=== PATIENT | male | born 1975 | race Caucasian/White ===

== ENCOUNTER 2021-06-06 04:59 | Emergency (ER) | payer OTHER ==
[~2021-06-06] VITALS: Ht 177.8 cm; Wt 93.0 kg
[~2021-06-06 04:59] MED LIST: ALPR.25 PO; AMIT10 PO; ATOR10 PO; BUPR100; CYCL10 PO; FLUO10 PO; HYDACE5 PO; HYDACE5325; KETO10 PO; NAPR375; OLAN5 PO; OMEP20ER PO; PREG25 PO; Prozac40 MG PO; RXCYCL10 PO; TRAZ50; ZOLP5 PO; [UNRECOGNIZED DRUG - OTHER]
[2021-06-06 05:51] LABS: BASOPHILS ABSOLUTE AUTO 0.06 K/mm3 (0.00-0.23); BASOPHILS PERCENT AUTO 1 % (0-2); EOSINOPHILS ABSOLUTE AUTO 0.37 K/mm3 (0.00-0.68); EOSINOPHILS PERCENT AUTO 3 % (0-6); Hematocrit 45.1 % (37.0-53.0); Hemoglobin 15.6 g/dL (13.5-17.5); IMMATURE GRAN ABSOLUTE AUTO 0.05 K/mm3 (0.00-0.10); IMMATURE GRAN PERCENT AUTO 1 % (0-1); LYMPHOCYTES ABSOLUTE AUTO 1.61 K/mm3 (0.84-5.20); LYMPHOCYTES PERCENT AUTO 15 % (21-46); MONOCYTES ABSOLUTE AUTO 0.55 K/mm3 (0.16-1.47); MONOCYTES PERCENT AUTO 5 % (4-13); Mean Corpuscular HGB Conc 34.6 g/dL (31.5-36.5); Mean Corpuscular Volume 90 fL (80-100); Mean Platelet Volume 9.8 fL (9.1-12.4); NEUTROPHILS ABSOLUTE AUTO 8.32 K/mm3 (1.96-9.15); NEUTROPHILS PERCENT AUTO 76 % (41-73); Platelet Count 314 K/mm3 (150-400); RDW Coefficient Variation 11.8 % (11.7-14.2); RDW Standard Deviation 38.1 fL (35.1-46.3); Red Blood Cell Count 5.04 M/mm3 (4.30-5.90); White Blood Cell Count 10.96 K/mm3 (4.00-11.30)
[2021-06-06 06:13] LABS: Alanine Aminotransfer (ALT/SGP 54 U/L (12-78); Albumin/Globulin Ratio 1.1 (0.8-1.8); Alk Phos 66 U/L (50-136); Anion Gap 8 mmol/L (6-16); Aspartate Aminotrans (AST/SGOT 22 U/L (12-37); Bilirubin, Direct 0.2 mg/dL (0.0-0.3); Bilirubin, Total 0.6 mg/dL (0.1-1.0); Blood Urea Nitrogen 18 mg/dL (8-24); Bun/Creatinine Ratio 14.1 (12.0-20.0); CO2, Blood 26 mmol/L (21-32); Calcium, Blood 9.1 mg/dL (8.5-10.1); Chloride, Blood 106 mmol/L (98-108); Creatinine, Blood 1.28 mg/dL (0.60-1.20); Globulin, Blood 3.6 g/dL (2.2-4.0); Glomerular Filtration Rate >60 (60-); Glucose, Blood 122 mg/dL (70-99); Sodium, Blood 140 mmol/L (136-145); Total Protein, Blood 7.6 g/dL (6.4-8.2)
[2021-06-06 08:27] LABS: Source, Urine Clean Catch
[2021-06-06 08:33] LABS: Appearance, Urine Clear (Clear); Bilirubin, Urine Neg (Neg); Blood, Urine Neg (Neg); Color, Urine Yellow (P-Yellow); Glucose Qualitative, Urine Neg (Neg); Ketones, Urine 2+ (Neg); Leukocyte Esterase, Urine Neg (Neg); Nitrite, Urine Neg (Neg); Protein, Urine Neg (Neg); Urobilinogen, Urine NORM (Normal)
== END 2021-06-06 10:34 | disposition home or self-care (01) ==
LOC: ER 04:59
PROVIDERS: Student in an Organized Health Care Education/Training Program
DX: R11.2 Nausea with vomiting, unspecified (principal); R10.12 Left upper quadrant pain
CPT/HCPCS: 36415; 74177; 76705; 80053; 81003; 82248; 83690; 85025; 96374; 96375; 99284-25; A9270; J1170; J1885; J2270; J2405; J7030; Q9967

== ENCOUNTER 2021-07-03 21:36 | Observation (INO) | payer OTHER ==
[~2021-07-03] VITALS: Ht 177.8 cm; Wt 99.4 kg
[2021-07-03 21:57] LABS: BASOPHILS ABSOLUTE AUTO 0.06 K/mm3 (0.00-0.23); BASOPHILS PERCENT AUTO 1 % (0-2); EOSINOPHILS PERCENT AUTO 6 % (0-6); Hematocrit 42.7 % (37.0-53.0); Hemoglobin 14.9 g/dL (13.5-17.5); IMMATURE GRAN ABSOLUTE AUTO 0.02 K/mm3 (0.00-0.10); IMMATURE GRAN PERCENT AUTO 0 % (0-1); LYMPHOCYTES ABSOLUTE AUTO 3.21 K/mm3 (0.84-5.20); LYMPHOCYTES PERCENT AUTO 39 % (21-46); MONOCYTES ABSOLUTE AUTO 0.77 K/mm3 (0.16-1.47); MONOCYTES PERCENT AUTO 9 % (4-13); Mean Corpuscular HGB Conc 34.9 g/dL (31.5-36.5); Mean Corpuscular Volume 89 fL (80-100); Mean Platelet Volume 9.4 fL (9.1-12.4); NEUTROPHILS ABSOLUTE AUTO 3.69 K/mm3 (1.96-9.15); NEUTROPHILS PERCENT AUTO 45 % (41-73); Platelet Count 342 K/mm3 (150-400); RDW Coefficient Variation 11.8 % (11.7-14.2); Red Blood Cell Count 4.81 M/mm3 (4.30-5.90); White Blood Cell Count 8.25 K/mm3 (4.00-11.30)
[2021-07-03 22:16] LABS: Albumin, Blood 3.9 g/dL (3.4-5.0); Albumin/Globulin Ratio 1.1 (0.8-1.8); Bilirubin, Total 0.6 mg/dL (0.1-1.0); Bun/Creatinine Ratio 10.9 (12.0-20.0); Calcium, Blood 9.1 mg/dL (8.5-10.1); Creatinine, Blood 1.19 mg/dL (0.60-1.20); Globulin, Blood 3.4 g/dL (2.2-4.0); Potassium, Blood 3.6 mmol/L (3.5-5.5); Total Protein, Blood 7.3 g/dL (6.4-8.2)
--- NOTE | 2021-07-04 05:10 | NUR ---
MECHANICS SUPERVISOR SUMMARY PT A&O X4 AND COOPERATIVE. VSS. PT ARRIVED ON FLOOR AT ABOUT 0139. HE COMPAINED OF 4/10 ABD PN THAT WAS RELIEVED WITH FENTANYL. PT DENIES N/V. NO OTHER ACUTE CHANGES THIS SHIFT.
--- NOTE | 2021-07-04 15:59 | NUR ---
PT TO PRE OP.
--- NOTE | 2021-07-04 17:19 | NUR ---
PT TAKEN TO PACU TO WAIT FOR SURGERY. REPORT TO MARY MEYERS TO ASSUME CARE OF PATIENT. PT VOIDED PRIOR TO GOING TO BATHROOM
--- NOTE | 2021-07-05 05:05 | NUR ---
PT A&O X4 AND COOPERATIVE. VSS. PT RETURNED FROM SURGERY AROUND 2019. FAMILY WAS WAITING AT BEDSIDE. INCISION SITES C/D/I. PT COMPLAINED OF 4/10 ABD PN UPON HIS RETURN TO THE FLOOR. HE WAS MEDICATED WITH NORCO AND PN REDUCE TO 3/10. PATIENT HAS BEEN ABLE TO AMBULATE TO THE BATHROOM INDEPENDENTLY AND URINATE. HE HAS TOLERATED EATING CRAKERS AND JELLO. NO OTHER ACUTE CHANGES THIS SHIFT.
[2021-07-05] MEDS ORDERED: HYDR1TAB94 PO (10:11)
--- NOTE | 2021-07-05 10:42 | NUR ---
DISCHARGE PT DISCHARGED HOME AT APROX 1042. PT GIVEN WRITTEN AND VERBAL DC INSTRUCTIONS AND VERBALIZED UNDERSTANDING. IV REMOVED. WRITTEN RX FOR PAIN MEDICATION GIVEN TO PT, COPY ON CHART. DECLINED WC TO CAR, AMBULATED INDEPENDENTLY
== END 2021-07-05 10:46 | disposition home or self-care (01) ==
LOC: ER 21:36 → SURS 21:37
PROVIDERS: Physician Assistant; ADMIT Surgery
PROC: BF12YZZ Fluoroscopy of Gallbladder using Other Contrast (ICD-10-PCS; principal; 2021-07-04 15:30)
PROC: 0FT44ZZ Resection of Gallbladder, Percutaneous Endoscopic Approach (ICD-10-PCS; principal; 2021-07-04 15:30)
DX: K80.12 Calculus of gallbladder with acute and chronic cholecystitis without obstruction (principal); F43.10 Post-traumatic stress disorder, unspecified; E78.5 Hyperlipidemia, unspecified; M79.7 Fibromyalgia; X58.XXXA Exposure to other specified factors, initial encounter; Z88.8 Allergy status to other drugs, medicaments and biological substances
CPT/HCPCS: 36415; 74300; 76705; 80053; 83690; 85025; 94760; 96374; 96375; 96376; 99285-25; A9270; C1729; G0378; J0690; J1100; J1170; J1885; J2270; J2405; J2704; J2710; J3010; J7120

== ENCOUNTER 2021-10-06 06:00 | Day surgery (SDC) | payer OTHER ==
[~2021-10-06] VITALS: Ht 177.8 cm; Wt 95.0 kg
[~2021-10-06 06:00] MED LIST changes: +HYDR1TAB94 PO
--- NOTE | 2021-10-06 11:31 | NUR ---
PT DRESSED, IV DC'D INTACT, TR BAND REMOVED, DRESSING AND SPLINT TO R WRIST, SLING TO R ARM, PT CHOOSES TO AMB OUT OF HC, DRIVING PT HOME WITH DC INSTRUCTIONS, CARDIOLOGY TO CALL PT FOR F/U WITH Jaden FORTE NP
== END 2021-10-06 11:15 | disposition home or self-care (01) ==
LOC: MHTC 06:00
DX: R07.89 Other chest pain (principal); R94.39 Abnormal result of other cardiovascular function study; Z82.49 Family history of ischemic heart disease and other diseases of the circulatory system; E78.5 Hyperlipidemia, unspecified; I10 Essential (primary) hypertension; F17.200 Nicotine dependence, unspecified, uncomplicated; G47.33 Obstructive sleep apnea (adult) (pediatric); Z88.8 Allergy status to other drugs, medicaments and biological substances; Z87.891 Personal history of nicotine dependence; K76.0 Fatty (change of) liver, not elsewhere classified
CPT/HCPCS: 76937; 93454; 99152; 99153; A9270; C1769; C1887; C1894; J1644; J2250; J3010; J7030; J7040; Q9967